=== PATIENT | female | born 1960 | race Caucasian/White ===

== ENCOUNTER 2021-02-10 09:24 | Emergency (ER) | payer OTHER ==
[~2021-02-10] VITALS: Ht 167.6 cm; Wt 117.8 kg
[2021-02-10] MEDS ORDERED: ONDANSETRON PF 4 MG/2 ML VIAL. IVP ONE (10:00)
[2021-02-10] MEDS ORDERED: IV NORMAL SALINE 1,000ML 1,000 ML IV SCH (10:00)
--- NOTE | 2021-02-10 10:08 | PHYS DOC ---
General Adult EDM: Chief Complaint: ABDOMINAL PAIN HPI: HPI: 60 yo F PMH NIDDM, HTN, HLD and obesity, presents to the ed with c/p "pressure in by stomach" describes as left upper and right upper quadrant abdominal pain that woke patient up at 630 this morning. Patient reports associated feeling hot, feverish, sweaty and nauseous. Also reports low back pain on both sides and in the middle. Did have a bowel movement before coming in, denies any associated diarrhea, did not look at BM color. States this feel like a prior episode of colitis. FH tachyarrhythmias. No family history of CAD or aneurysms. Ate hot dog and baked beans last night. PSH c/s. H/o blood transfusion. Vaccinated for covid 2 weeks ago. 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 Review of Systems: Review of Systems: Constitutional: Denies lethargy or confusion Eyes: Denies change in visual acuity HENT: Denies nasal congestion or sore throat Respiratory: Denies cough or shortness of breath Cardiovascular: Denies chest pain or edema GI: Denies vomiting or diarrhea : Denies dysuria, hematuria or vaginal bleeding Musculoskeletal: Denies back pain or joint pain Integument: Denies rash or blistering lesions Neurologic: Denies headache, focal weakness or sensory changes Endocrine: Denies polyuria or polydipsia Lymphatic: Denies swollen glands Psychiatric: Denies depression or anxiety Current Medications: Current Meds: Current Medications Medications (Trade) Dose Ordered Sig/Sandi Start Time Stop Time Status Last Admin Dose Admin Iohexol (Omnipaque 300 Mg/ml) 75 ml 1X ONCE 02/10/21 10:15 02/10/21 10:16 UNV Ondansetron HCl (Zofran) 4 mg 1X ONCE 02/10/21 10:00 02/10/21 10:01 DC Sodium Chloride 1,000 ml @ 1,000 mls/hr Q1H 02/10/21 10:00 02/10/21 10:59 Allergies: Allergies: Allergies Coded Allergies Type Severity Reaction Last Updated Verified codeine Allergy Unknown Nausea and Vomiting 02/10/21 Yes Physical Exam: PE: Constitutional: non-toxic appearance, afebrile, uncomfortable appearing HENT: Normocephalic, atraumatic, dry muscous membranes Eyes: EOMI, conjunctiva normal, no discharge. Neck: Normal range of motion, supple, Cardiovascular: S1/2 present, regular rhythm Lungs & Thorax: Speaking in full sentences, bilateral equal chest rise, no tachypnea or increased work of breathing Abdomen: soft, ruq and luq ttp. Skin: Warm, clammy, no diaphoresis Back: No midline step offs, no CVA tenderness. [] Extremities: No tenderness, no cyanosis, Neurologic: Alert and oriented X 3, normal motor function, normal sensory function, no focal deficits noted. [] Psychologic: Affect normal, judgement normal, mood normal. [] EKG: EKG: Sinus rhythm 59 bpm, no axis deviation, normal intervals, no T wave inversions, no ST elevations or ST depressions Radiology/Procedures: Radiology/Procedures: IMAGING REPORT Signed PATIENT: JOSEPH RHODES ACCOUNT: [id number] : 1960 LOCATION: ER AGE: 60 SEX: F EXAM STATUS: REG ER ORD. PHYSICIAN: ANAYELI ESTEVES DO REASON: upper abd pain PROCEDURE: CT ABD PELV W/ IV CONTRST ONLY Exam: CT abdomen/pelvis with intravenous contrast Indication: Upper abdominal pain Comparison: None Technique: Helical CT imaging performed of the abdomen and pelvis after the intravenous administration of contrast. Sagittal and coronal reformats were obtained. One or more of the following individualized dose reduction techniques were utilized for this examination: 1. Automated exposure control 2. Adjustment of the mA and/or kV according to patient size 3. Use of iterative reconstruction technique. Findings: Lower chest: Lung bases are clear. Heart is normal in size. Liver: No focal liver lesions Gallbladder/Biliary Tree: Normal. Pancreas: Normal. Spleen: Normal. Adrenal Glands: Normal. Kidneys/Ureters/Bladder: No hydronephrosis. There is a 2 cm exophytic left renal cyst. Ureters and bladder are normal Reproductive Organs: Uterus and ovaries are unremarkable Stomach, small bowel, and colon: Small hiatal hernia. No small bowel obstruction. Appendix is normal. There are colonic diverticula, greatest in the sigmoid colon. Vasculature: The abdominal aorta is normal in caliber. Lymph Nodes: There are few prominent saray hepatis lymph nodes measuring up to 1 cm short axis, nonspecific. Peritoneum and retroperitoneum: No free fluid or free air. Bones: There is mild levoscoliosis of the lumbar spine. Mild degenerative disc disease. Impression: 1. No acute abnormality in the abdomen and pelvis. 2. Colonic diverticulosis, greatest in the sigmoid colon. 3. Small hiatal hernia. Electronically signed by: Glenna Miller MD (02/10/2021 11:37 AM) [id number] DICTATED AND SIGNED BY: GLENNA MILLER MD DATE: 02/10/21 112 CC: STEVEN JOHNSON DO; ANAYELI ESTEVES DO ~MTH0 0 IMAGING REPORT Signed PATIENT: JOSEPH RHODES ACCOUNT: [id number] : 1960 LOCATION: ER AGE: 60 SEX: F EXAM STATUS: REG ER ORD. PHYSICIAN: ANAYELI ESTEVES DO REASON: epigastric pain, and left flank pain PROCEDURE: PORTABLE CHEST 1V EXAM: XR CHEST 1V 02/10/2021 10:02 AM CLINICAL INDICATION: Epigastric and left flank pain COMPARISON: None TECHNIQUE: AP view of the chest FINDINGS: The heart and mediastinum are normal. Lungs are adequately expanded. No consolidation, pleural effusion, or pneumothorax. There is lumbar scoliosis. IMPRESSION: No acute cardiopulmonary abnormality. Electronically signed by: Glenna Miller MD (02/10/2021 11:29 AM) [id number] DICTATED AND SIGNED BY: GLENNA MILLER MD DATE: 02/10/211128 CC: STEVEN JOHNSON DO; ANAYELI ESTEVES DO ~MTH0 0 Heart Score: C/O Chest Pain: No HEART Score for Chest Pain: HEART Score for Chest Pain Response (Comments) Value History Slighlty/Non-Suspicious 0 ECG Normal 0 Age >45 - < 65 1 Risk Factors >3 Risk Factors or Hx CAD 2 Troponin < Normal Limit 0 Total 3 Risk Factors: Risk Factors: DM, Current or recent (<one month) smoker, HTN, HLP, family history of CAD, obesity. Risk Scores: Score 0 - 3: 2.5% MACE over next 6 weeks - Discharge Home Score 4 - 6: 20.3% MACE over next 6 weeks - Admit for Clinical Observation Score 7 - 10: 72.7% MACE over next 6 weeks - Early Invasive Strategies Course & Med Decision Making: Course & Med Decision Making Pertinent Labs and Imaging studies reviewed. (See chart for details) COVID-19 CRITERIA: The patient was evaluated during the global COVID-19 pandemic, and that diagnosis was suspected/considered upon their initial presentation. Their evaluation, treatment and testing was consistent with current guidelines for patients who present with complaints or symptoms that may be related to COVID-19. Concern for upper abdominal pain described as pressure. On reevaluation patient states pain is "bloating" but she has been passing gas and belching. No further episode of nausea and vomiting, pain has subsided. Patient admits that she was recently getting over a head cold (started 01/29-had a negative covid test) with complaints of nasal congestion and weakness. Covid on differential, test pending, suspect more likely GI viral process. Patient does have bradycardia on monitor that is intermittent with no confusion, chest pain or dyspnea. Will discharge home with strict ED return precautions were given for dehydration, intractable nausea vomiting diarrhea, severe pain, chest pain or syncope. Encouraged urgent outpatient follow-up with PMD for reevaluation of abdominal pain and bradycardia. Life-threatening processes were considered but are low suspicion at this time, given history, physical exam and ED workup. Pt was educated on all prescription medications and adverse effects. All of patient's questions were answered and pt was stable at time of discharge. Life/limb-threatening differential includes but is not limited to, aortic dissection, aortic aneurysm, acute coronary syndrome, surgical abdomen (appendicitis, cholecystitis, ischemic bowel, strangulated hernia, etc), bowel obstruction or volvulus, bladder outlet obstruction, gastrointestinal bleeding, inflammatory bowel disease, peptic ulcer disease, ACS/CAD, sepsis, diverticular disease, ureterolithiasis, nephrolithiasis, ovarian or testicular torsion, ectopic , vaginal hemorrhage, or genitourinary infection. I have spoken with the patient and/or caregivers. I explained the patient's condition, diagnoses and treatment plan based on the information available to me at this time. I have answered the patient and/or caregiver's questions and ad dressed any concerns. The patient and/or caregivers have a good understanding of patient's diagnosis, condition and treatment plan as can be expected at this point. Vital signs have been stable. Patient's condition is stable and appropriate for discharge from the emergency department. Patient will pursue further outpatient evaluation with primary care physician or other designated or consulting physician as outlined in the discharge instructions. The patient and/or caregivers are agreeable to this plan of care and follow-up instructions have been explained in detail. The patient and/or caregivers have received these instructions in written form and have expressed an understanding of the discharge instructions. The patient and/or caregivers are aware that any significant change of condition or worsening of symptoms should prompt immediate return to this or the closest emergency department or call to 911Evans Morales Disclaimer: Carmen Disclaimer: This electronic medical record was generated, in whole or in part, using a voice recognition dictation system. Departure Departure: Impression: Primary Impression: Abdominal pain Additional Impressions: Nausea vomiting and diarrhea Person under investigation for COVID-19 Bradycardia Disposition: 01 HOME / SELF CARE / HOMELESS Condition: STABLE Referrals: STEVEN JOHNSON DO (PCP) Follow up with your pcp in 1-2 days or [facility] [phone] OR [facility] [phone] Patient Instructions: Abdominal Pain, Nausea and Vomiting Additional Instructions: Return to ED immediately if your oxygen level drops below 90% (purchase a pulse oximetry at a medical supply store), difficulties breathing including rapid breathing or increased work of breathing (skin sucking under ribs), chest pain or stroke-like symptoms (facial droop, speech changes, arm/leg weakness). You have been tested for or diagnosed with COVID-19. It is an infection caused by a new type of coronavirus. COVID-19 will cause cold-like or mild flu symptoms in most. It can cause more severe symptoms like problems breathing in some. There is no treatment for COVID-19. The body will clear the infection over time. Self-care will help to ease discomfort. Steps to Take: Self-Care Rest as needed. Healthy habits may help you feel better. Steps include: Choose healthy foods including fruits and vegetables. Drink water throughout the day. Get plenty of sleep each night. If you smoke, try to quit. It may ease breathing. Avoid alcohol. Keep Others Healthy The virus can spread to others. Droplets are released every time you sneeze or cough. The droplets can get into the mouth, nose, or eyes of people near you and lead to infection. To lower the chances of spreading COVID-19 to others: Stay at home until your doctor has said it is safe to leave. If you tested positive this will mean staying isolated until both of the following are true: At least 7 days have passed since the start of illness. You are free of fever for at least 72 hours without the use of medicine. During this time: - Avoid public areas, events, or transportation. Do not return to work or school until your doctor has said it is safe to do so. - Call ahead if you need to go to a medical center. Let them know you may have COVID-19. It will help them guide you where to go. They may also ask you to wear a facemask when you come to the office. - If you call for emergency medical services, let them know you may have COVID- 19. While at home: - Try to avoid close contact with others. Stay about 6 feet away. - If possible, spend most of your time in a separate room from others. - Use a face mask if you will be in close contact with others such as sharing a room or vehicle. - Have someone wipe down common surfaces in the home. Use household dip tanker every day on areas like doorknobs, counters, or sinks. - Cough or sneeze into a tissue. Throw the tissue away right after use. If a tissue is not available, cough or sneeze into your elbow. - Wash your hands often. Wash them after sneezing or coughing. Use soap and wa ter and wash for at least 20 seconds. Alcohol based hand office cleaner can be used if soap and water is not available. - Do not prepare food for others. Avoid sharing personal items like forks, spoons, or toothbrushes. - Avoid close contact with pets while you are sick. There is no evidence of the virus passing to pets. This is a safety step until more is known about this virus. Isolation can be frustrating. Social interaction can help. Keep in touch with friends and family through phone and tech options. You can still interact with others in your home, just keep a safe distance of about 6 feet. Follow-up: Your doctors office will check in with you to see if there are any changes in your health. You may be asked to keep track of symptoms to share with them. They will also let you know when you are clear to be in public again. Problems to Look Out For: Contact your doctor if your recovery is not going as you expect. Get emergency care if you have problems such as: - Trouble breathing - Nonstop chest pain or pressure - Changes in awareness, confusion, or problems waking - Lips or face have bluish color - Worsening of symptoms If you think you have an emergency, call for emergency medical services right away. As taken from [facility] Health Scripts Ibuprofen (IBUPROFEN) 600 Mg Tablet 600 MG PO Q6HRS for headache, #20 TAB Prov: ANAYELI ESTEVES DO 02/10/21 Ondansetron (ONDANSETRON ODT) 4 Mg Tab.rapdis 4 MG PO Q6HRS for Nausea/Vomiting, #20 TAB Prov: ANAYELI ESTEVES DO 02/10/21 ANAYELI ESTEVES DO Feb 10, 2021 10:08
[2021-02-10] MEDS ORDERED: MORPHINE SULFATE 10 MG/ML SYRINGE. IV ONE (10:15)
[2021-02-10] MEDS ORDERED: IOHEXOL 300 MG/ML 75 ML VIAL. IV ONE (10:15)
[2021-02-10] MEDS ORDERED: FAMOTIDINE 20 MG/2 ML VIAL IVP ONE (10:15)
[2021-02-10] MEDS ORDERED: CONTRAST GIVEN. MC PRN (10:15)
[2021-02-10 10:41] LABS: BASO # 0.1 x10^3/uL (0.0-0.2); BASO % 1 % (0-3); EOS # 0.2 x10^3/uL (0.0-0.7); EOS % 2 % (0-3); HEMATOCRIT 38.3 % (36.0-47.0); HEMOGLOBIN 12.7 g/dL (12.0-15.5); LYMPH # 2.5 x10^3/uL (1.0-4.8); LYMPH % 25 % (24-48); MEAN CORPUSCULAR HEMOGLOBIN 30 pg (25-35); MEAN CORPUSCULAR HGB CONC 33 g/dL (31-37); MEAN CORPUSCULAR VOLUME 90 fL (79-100); MONO # 0.6 x10^3/uL (0.0-1.1); MONO % 6 % (0-9); NEUT # 6.4 x10^3uL (1.8-7.7); NEUT % 66 % (31-73); PLATELET COUNT 319 x10^3/uL (140-400); RED BLOOD COUNT 4.27 x10^6/uL (3.50-5.40); RED CELL DISTRIBUTION WIDTH 14.7 % (11.5-14.5); WHITE BLOOD COUNT 9.8 x10^3/uL (4.0-11.0)
[2021-02-10 10:58] LABS: CALCIUM 9.3 mg/dL (8.5-10.1); CREATININE 0.7 mg/dL (0.6-1.0); GFR 85.6; POTASSIUM 3.9 mmol/L (3.5-5.1)
[2021-02-10 11:11] LABS: ALBUMIN 3.7 g/dL (3.4-5.0); ALBUMIN/GLOBULIN RATIO 1.1 (1.0-1.7); MAGNESIUM 1.7 mg/dL (1.8-2.4); TOTAL BILIRUBIN 0.3 mg/dL (0.2-1.0)
--- NOTE | 2021-02-10 11:31 | RAD ---
EXAM: XR CHEST 1V 02/10/2021 10:02 AM CLINICAL INDICATION: Epigastric and left flank pain COMPARISON: None TECHNIQUE: AP view of the chest FINDINGS: The heart and mediastinum are normal. Lungs are adequately expanded. No consolidation, ple ural effusion, or pneumothorax. There is lumbar scoliosis. IMPRESSION: No acute cardiopulmonary abnormality. Electronically signed by: Glenna Miller MD (02/10/2021 11:29 AM) [id number]
--- NOTE | 2021-02-10 11:39 | RAD ---
Exam: CT abdomen/pelvis with intravenous contrast Indication: Upper abdominal pain Comparison: None Technique: Helical CT imaging performed of the abdomen and pelvis after the intravenous administratio n of contrast. Sagittal and coronal reformats were obtained. One or more of the following individualized dose reduction techniques were utilized for this examinat ion: 1. Automated exposure control 2. Adjustment of the mA and/or kV according to patient size 3. Use of iterative reconstruction technique. Findings: Lower chest: Lung bases are clear. Heart is normal in size. Liver: No focal liver lesions Gallbladder/Biliary Tree: Normal. Pancreas: Normal. Spleen: Normal. Adrenal Glands: Normal. Kidneys/Ureters/Bladder: No hydronephrosis. There is a 2 cm exophytic left renal cyst. Ureters and bl adder are normal Reproductive Organs: Uterus and ovaries are unremarkable Stomach, small bowel, and colon: Small hiatal hernia. No small bowel obstruction. Appendix is normal. There are colonic diverticula, greatest in the sigmoid colon. Vasculature: The abdominal aorta is normal in caliber. Lymph Nodes: There are few prominent saray hepatis lymph nodes measuring up to 1 cm short axis, nonsp ecific. Peritoneum and retroperitoneum: No free fluid or free air. Bones: There is mild levoscoliosis of the lumbar spine. Mild degenerative disc disease. Impression: 1. No acute abnormality in the abdomen and pelvis. 2. Colonic diverticulosis, greatest in the sigmoid colon. 3. Small hiatal hernia. Electronically signed by: Glenna Miller MD (02/10/2021 11:37 AM) [id number]
[2021-02-10] MEDS ORDERED: KETOROLAC 15 MG/ML VIAL. IVP ONE (12:15)
[2021-02-10 12:35] LABS: BILIRUBIN,URINE NEG (NEG); CLARITY,URINE CLEAR; COLOR,URINE YELLOW; GLUCOSE,URINE NEG (NEG); NITRITE,URINE NEG (NEG); UROBILINOGEN,URINE 0.2 mg/dL (0.2 mg/dL)
[2021-02-10 12:36] LABS: BACTERIA,URINE 0 /HPF (0-FEW); RBC,URINE 0 /HPF (0-2); SQUAMOUS EPITHELIAL CELL,UR MOD /LPF; WBC,URINE OCC /HPF (0-4)
[2021-02-10] MEDS ORDERED: IBUP600T16 PO (14:08)
[2021-02-10] MEDS ORDERED: ONDA4TAB12 PO (14:08)
[2021-02-10 14:23] VITALS: BP 138/67
--- NOTE | 2021-02-10 19:33 | EKG ---
[address] [address] Test Date: 2021-02-10 Test Time: 10:01:03 Pat Name: JOSEPH RHODES Department: Room: Gender: F Business Intelligence Developer: MARK : 1960 Requested By: ANAYELI ESTEVES Order Number: [id number] Reading MD: Measurements Intervals [place] Rate: 59 P: 69 ID: [id number] QRS: 61 QRSD: 104 T: 78 QT: 432 QTc: 432 Interpretive Statements SINUS RHYTHM NORMAL ECG RI6.02 No previous ECG available for comparison
[2021-02-10] MEDS ORDERED: METO10TA81 PO (22:59)
--- NOTE | 2021-02-11 00:55 | EKG ---
[address] [address] Test Date: 2021-02-10 Test Time: 21:23:02 Pat Name: JOSEPH RHODES Department: Room: Gender: F Dealer Sales Manager: : 1960 Requested By: ANAYELI ESTEVES Order Number: [id number] Reading MD: Measurements Intervals [place] Rate: 68 P: AR: QRS: 32 QRSD: 90 T: 20 QT: 434 QTc: 462 Interpretive Statements IRREGULAR RHYTHM, NO P-WAVE FOUND OTHERWISE NORMAL ECG RI6.02 No previous ECG available for comparison
--- NOTE | 2021-02-11 16:22 | NUR ---
IP: Patient notified of negative COVID19 test result. Verbalized understanding.
== END 2021-02-10 14:45 | disposition home or self-care (01) ==
LOC: ER 09:24
DX: R11.2 Nausea with vomiting, unspecified (principal); R10.11 Right upper quadrant pain; R19.7 Diarrhea, unspecified; R00.1 Bradycardia, unspecified; E11.9 Type 2 diabetes mellitus without complications; I10 Essential (primary) hypertension; E78.5 Hyperlipidemia, unspecified; E66.9 Obesity, unspecified; Z20.822 Contact with and (suspected) exposure to COVID-19; Z68.41 Body mass index [BMI] 40.0-44.9, adult; Z88.5 Allergy status to narcotic agent
CPT/HCPCS: 36415; 71045; 74177; 80053; 81001; 83690; 83735; 83880; 84484; 85025; 93005; 96361; 96374; 96375; 99285; C9803; J1885; J2270; J2405; J3490; J7030; Q9967; U0003

== ENCOUNTER 2021-02-10 19:53 | Emergency (ER) | payer OTHER ==
[~2021-02-10] VITALS: Ht 167.6 cm; Wt 117.8 kg
[~2021-02-10 19:53] MED LIST: IBUP600T16 PO; ONDA4TAB12 PO
[2021-02-10 20:13] VITALS: BP 138/67
[2021-02-10] MEDS ORDERED: METOCLOPRAMIDE HCL 10 MG/2 ML VIAL. ONE (20:18)
[2021-02-10] MEDS ORDERED: ONDANSETRON PF 4 MG/2 ML VIAL. ONE (20:18)
--- NOTE | 2021-02-10 20:27 | PHYS DOC ---
Past History Past Surgical History: No Surgical History, Alcohol Use: Occasionally Adult General Chief Complaint Chief Complaint: NAUSEA/VOMITING/DIARRHEA HPI HPI Patient is a 60-year-old female who presents emergency department with a chief complaint of nausea and vomiting since this morning. States he was in the emergency department earlier today and had a complete work-up and was feeling better but then when she got home began to have some nausea and vomiting again. Denies any headache, change in vision, chest pain, shortness of breath, abdominal pain, does have a little abdominal cramping with nausea, diarrhea, dysuria, hematuria or blood in the stool. Denies any numbness/weakness/tingling. Denies any recent trauma, travels or fevers. Denies any known ill contacts. Review of Systems Review of Systems Review of systems otherwise unremarkable except noted in HPI Current Medications Current Medications Current Medications Medications (Trade) Dose Ordered Sig/Sandi Start Time Stop Time Status Last Admin Dose Admin Metoclopramide HCl (Reglan Vial) 10 mg STK-MED ONCE 02/10/21 20:18 02/10/21 20:18 DC Ondansetron HCl (Zofran) 4 mg STK-MED ONCE 02/10/21 20:18 02/10/21 20:18 DC Allergies Allergies Allergies Coded Allergies Type Severity Reaction Last Updated Verified codeine Allergy Unknown Nausea and Vomiting 02/10/21 Yes Physical Exam Physical Exam Constitutional: Well developed, well nourished, no acute distress, non-toxic appearance. [] HENT: Normocephalic, atraumatic, bilateral external ears normal, oropharynx moist, no oral exudates, nose normal. [] Eyes: conjunctiva normal, no discharge. [] Neck: Normal range of motion, no tenderness, supple, no stridor. [] Cardiovascular:Heart rate regular rhythm, no murmur [] Lungs & Thorax: Bilateral breath sounds clear to auscultation [] Abdomen: soft, no tenderness, no masses, no pulsatile masses. [] Skin: Warm, dry, no erythema, no rash. [] Back: no CVA tenderness. [] Extremities: No tenderness, no cyanosis, no clubbing, ROM intact, no edema. [] Neurologic: Alert and oriented X 3, normal motor function, normal sensory function, no focal deficits noted. [] Psychologic: Affect normal, judgement normal, mood normal. [] Current Patient Data Vital Signs Vital Signs Date Time Temp Pulse Resp B/P (MAP) Pulse Ox O2 Delivery O2 Flow Rate FiO2 02/10/21 20:13 97.9 70 16 138/67 (90) 98 EKG EKG [] Radiology/Procedures Radiology/Procedures [] Heart Score C/O Chest Pain: No Risk Factors: Risk Factors: DM, Current or recent (<one month) smoker, HTN, HLP, family history of CAD, obesity. Risk Scores: Risk Factors: DM, Current or recent (<one month) smoker, HTN, HLP, family history of CAD, obesity. Course & Med Decision Making Course & Med Decision Making Patient is a 60-year-old female who presents with nausea and vomiting Vital signs not concerning. Physical exam noted above. CT a few hours ago normal. Laboratory analysis earlier notable for hypomagnesemia. Placed on the monitor with IV access established and given nausea medicine and IV fluid. [] Dragon Disclaimer Dragon Disclaimer This electronic medical record was generated, in whole or in part, using a voice recognition dictation system. Departure Departure: Impression: Primary Impression: Nausea & vomiting Disposition: HOME / SELF CARE / HOMELESS Condition: GOOD Referrals: STEVEN JOHNSON DO (PCP) Patient Instructions: Nausea and Vomiting Additional Instructions: Thank you for coming into the emergency department tonight and allowing us to take care of you. Please read all the attached information carefully to go back over things we discussed. As we discussed. Please do not eat any whole food tonight and stick with light clear liquids till a year stomach can get time to rest. Starting in the morning, you can advance to things like chicken soup and popsicles and things of the such as we discussed. Even if you are not feeling nauseous over the next couple of days please take both of your nausea medicines as we discussed and add Benadryl as well in between to allow you to take in fluids. Please call your primary care physician first thing in the morning to update on ED visit and set up a follow-up as soon as possible. Please come back to the ED immediately with new or concerning symptoms as discussed. Scripts Metoclopramide Hcl (REGLAN) 10 Mg Tablet 1 TAB PO TID for N/V for 7 Days, #21 TAB 0 Refills before food and bedtime Prov: SKY BURROUGHS MD 02/10/21 SKY BURROUGHS MD Feb 10, 2021 20:27
[2021-02-10] MEDS ORDERED: METOCLOPRAMIDE HCL 10 MG/2 ML VIAL. IVP ONE (20:30)
[2021-02-10] MEDS ORDERED: ONDANSETRON PF 4 MG/2 ML VIAL. IVP ONE (20:30)
[2021-02-10] MEDS ORDERED: IV RINGERS SOLUTION,LACTATED 1,000 ML IV ONE (20:30)
[2021-02-10 21:05] LABS: BASO # 0.1 x10^3/uL (0.0-0.2); BASO % 1 % (0-3); EOS # 0.1 x10^3/uL (0.0-0.7); EOS % 1 % (0-3); HEMATOCRIT 42.9 % (36.0-47.0); HEMOGLOBIN 13.8 g/dL (12.0-15.5); LYMPH # 1.5 x10^3/uL (1.0-4.8); LYMPH % 12 % (24-48); MEAN CORPUSCULAR HEMOGLOBIN 30 pg (25-35); MEAN CORPUSCULAR HGB CONC 32 g/dL (31-37); MEAN CORPUSCULAR VOLUME 92 fL (79-100); MONO # 0.9 x10^3/uL (0.0-1.1); MONO % 7 % (0-9); NEUT # 10.1 x10^3uL (1.8-7.7); NEUT % 80 % (31-73); PLATELET COUNT 324 x10^3/uL (140-400); RED BLOOD COUNT 4.66 x10^6/uL (3.50-5.40); RED CELL DISTRIBUTION WIDTH 15.6 % (11.5-14.5); WHITE BLOOD COUNT 12.7 x10^3/uL (4.0-11.0)
[2021-02-10] MEDS ORDERED: diphenhydrAMINE 50 MG/ML VIAL IVP ONE (22:30)
[2021-02-10] MEDS ORDERED: METO10TA81 PO (22:59)
--- NOTE | 2021-02-11 09:50 | NUR ---
IP: Attempted to notify patient of negative COVID19 test result. Voicemail message to please return call at number provided.
== END 2021-02-10 23:12 | disposition home or self-care (01) ==
LOC: ER 19:53
DX: R11.2 Nausea with vomiting, unspecified (principal); R10.9 Unspecified abdominal pain; Z88.5 Allergy status to narcotic agent
CPT/HCPCS: 36415; 85025; 96361; 96374; 96375; 99284; J1200; J2405; J2765; J7120